=== PATIENT | female | born 1985 | race Caucasian/White ===

== ENCOUNTER → 2017-02-10 | Outpatient (CLI) | payer OTHER ==
--- NOTE | 2017-02-10 11:36 | CR ---
EXAMINATION: Two-view chest (PA and Lateral views). HISTORY: Other signs and symptoms. FINDINGS: The trachea is midline. The cardiomediastinal silhouette is within normal limits. No pulmonary infil trates, effusions or pneumothorax. Osseous structures appear unremarkable. IMPRESSION: No acute cardiopulmonary process.
== END | disposition home or self-care (01) ==
LOC: MW.CHOBGYN 10:57
PROVIDERS: ATTEND Nurse Practitioner Women's Health
DX: R09.89 Other specified symptoms and signs involving the circulatory and respiratory systems (principal)
CPT/HCPCS: 71020; 71020-26

== ENCOUNTER 2017-04-13 20:40 | Emergency (ER) | payer OTHER ==
[2017-04-13] MEDS ORDERED: Famotidine 20 MG Tab PO ONE (20:43)
[2017-04-13] MEDS ORDERED: methylPREDNISolone Sodium Succinate 125 MG/2 ML SDV IM ONE (20:43)
--- NOTE | 2017-04-13 20:44 | EDM.PDOC ---
ED HPI GENERAL MEDICAL PROBLEM - General Stated Complaint: PT HAS ALLERGIC REATION Time Seen by Provider: 04/13/17 20:44 Source of Information: Reports: Patient - History of Present Illness INITIAL COMMENTS - FREE TEXT/NARRATIVE: HISTORY AND PHYSICAL: History of present illness: [] Patient presents with allergic reaction She notes is swelling, as well as sensation of throat "getting tight"earlier she did take 50 mg of Benadryl on her own at approximately 8:15, eye swelling has improved No lip swelling no tongue swelling oral pharyngeal edema or lip swelling no periorbital swelling at current No fever nausea vomiting chills sweats Only known allergy is to bee sting Patient has been at various graduation parties today eating a variety of foods otherwise no new exposures Review of systems: As per history of present illness and below otherwise all systems reviewed and negative. Past medical history: As per history of present illness and as reviewed below otherwise noncontributory. Surgical history: As per history of present illness and as reviewed below otherwise noncontributory. Social history: No reported history of drug or alcohol abuse. Family history: As per history of present illness and as reviewed below otherwise noncontributory. Physical exam: HEENT: Atraumatic, normocephalic, pupils reactive, negative for conjunctival pallor or scleral icterus, mucous membranes moist, throat clear, neck supple, nontender, trachea midline. No lip swelling tongue swelling or oral pharyngeal edema Lungs: Clear to auscultation, breath sounds equal bilaterally, chest nontender. Heart: S1S2, regular, negative for clicks, rubs, or JVD. Abdomen: Soft, nondistended, nontender. Negative for masses or hepatosplenomegaly. Negative for costovertebral tenderness. Pelvis: Stable nontender. Genitourinary: Deferred. Rectal: Deferred. Extremities: Atraumatic, negative for cords or calf pain. Neurovascular unremarkable. Neuro: Awake, alert, oriented. Cranial nerves II through XII unremarkable. Cerebellum unremarkable. Motor and sensory unremarkable throughout. Exam nonfocal. Diagnostics: [] Therapeutics: [] Benadryl 50 mg by mouth taken by patient at home prior to arrival Famotidine 20 mg by mouth none Solu-Medrol and 25 mg IM Impression: [] Allergic reaction-improved/resolved after above medication Definitive disposition and diagnosis as appropriate pending reevaluation and review of above. - Related Data Allergies Allergy/AdvReac Type Severity Reaction Status Date / Time venom-honey bee Allergy Severe Anaphylactic Verified 04/13/17 21:00 Shock bee Allergy Severe Anaphylactic Uncoded 04/13/17 21:00 Shock Home Meds: Home Meds . [No Known Home Meds] 08/27/15 [History] Past Medical History - Past Surgical History Other Female Surgeries/Procedures: polycystic ovarian syndrome Social & Family History - Tobacco Use Smoking Status *Q: Never Smoker Years of Tobacco use: 0 Used Tobacco, but Quit: Yes Month Tobacco Last Used: years ago Second Hand Smoke Exposure: No - Recreational Drug Use Recreational Drug Use: No ED ROS GENERAL - Review of Systems Review Of Systems: ROS reveals no pertinent complaints other than HPI. ED EXAM, GENERAL - Physical Exam Exam: See Below Course - Vital Signs Last Recorded V/S: Last Vital Signs Temp 36.6 C 04/13/17 20:45 Pulse 68 04/13/17 20:45 Resp 18 04/13/17 20:45 BP 168/74 H 04/13/17 20:45 Pulse Ox 100 04/13/17 20:45 - Orders/Labs/Meds Meds: Medications Discontinued Medications Generic Name Dose Route Start Last Admin Trade Name Freq PRN Reason Stop Dose Admin Famotidine 20 mg 04/13/17 20:43 04/13/17 20:51 Pepcid PO 04/13/17 20:44 20 mg ONETIME ONE Administration Methylprednisolone Sodium Succinate 125 mg 04/13/17 20:43 04/13/17 20:52 Solu-Medrol IM 04/13/17 20:44 125 mg ONETIME ONE Administration Departure - Departure Time of Disposition: 21:37 Disposition: Home, Self-Care 01 Condition: good Clinical Impression: Allergic reaction - Discharge Information Additional Instructions: Continue Benadryl 50 mg every 4-6 hours as needed Zantac 150 mg by mouth 2 times daily may benefit as needed An EpiPen prescription has been provided for you to use as needed Return if symptoms persist or worsen Followup with primary care in one week and consider allergy testing [facility] [address] [place] [id number] The following information is given to patients seen in the emergency department who are being discharged to home. This information is to outline your options for follow-up care. We provide all patients seen in our emergency department with a follow-up referral. The need for follow-up, as well as the timing and circumstances, are variable depending upon the specifics of your emergency department visit. If you don't have a primary care physician on staff, we will provide you with a referral. We always advise you to contact your personal physician following an emergency department visit to inform them of the circumstance of the visit and for follow-up with them and/or the need for any referrals to a consulting specialist. The emergency department will also refer you to a specialist when appropriate. This referral assures that you have the opportunity for follow-up care with a specialist. All of these measure are taken in an effort to provide you with optimal care, which includes your follow-up. Under all circumstances we always encourage you to contact your private physician who remains a resource for coordinating your care. When calling for follow-up care, please make the office aware that this follow-up is from your recent emergency room visit. If for any reason you are refused follow-up, please contact the [facility] emergency department at and asked to speak to the emergency department charge nurse.
[2017-04-13 22:17] VITALS: BP 115/77
== END 2017-04-13 21:53 | disposition home or self-care (01) ==
LOC: MW.ED 20:40
DX: H57.8 Other specified disorders of eye and adnexa (principal); T78.40XA Allergy, unspecified, initial encounter; Z91.030 Bee allergy status
CPT/HCPCS: 96372; 99283; A9270; J2930